=== PATIENT | male | born 1975 | race Hispanic/Latino ===

== ENCOUNTER 2020-10-11 20:11 | Inpatient (IN) | payer BC ==
[2020-10-11] MEDS ORDERED: ACETAMINOPHEN 500 MG TAB ONE (20:47)
[2020-10-11] MEDS ORDERED: CIPROFLOXACIN 400mg IV 400 MG/200 ML BAG IV ONE (22:24)
[2020-10-11] MEDS ORDERED: NA CHLORIDE 0.9% 1,000 ML ONE (22:24)
[2020-10-11] MEDS ORDERED: ONDANSETRON 4 MG/2 ML VIAL ONE (22:24)
[2020-10-11] MEDS ORDERED: MORPHINE 4 MG/ML SYR ONE ×2 (22:24→23:42)
[2020-10-11] MEDS ORDERED: METRONIDAZOLE 500mg IVPB 500 MG/100 ML BAG IV ONE (22:24)
[2020-10-11 22:43] LABS: Basophils % 0.2 % (0-1.3); Hematocrit 42.6 % (39.6-49.0); Lymphocytes % 7.1 % (15.3-44.8); MPV 9.5 fL (7.6-11.3); RBC Red Blood Cell Count 5.06 M/uL (4.33-5.43)
[2020-10-11 22:44] LABS: Protime INR 1.04
[2020-10-11 23:01] LABS: ALT/SGPT 19 U/L (12-78); AST/SGOT 15 U/L (15-37); Albumin 4.1 g/dL (3.4-5.0); Alkaline Phosphatase 79 U/L (45-117); BUN Blood Urea Nitrogen 20 mg/dL (7-18); Bicarbonate 23 mmol/L (21-32); Bilirubin Direct 0.2 mg/dL (0-0.2); Bilirubin Total 0.8 mg/dL (0.2-1.0); Glucose Level 101 mg/dL (74-106); Lipase 100 U/L (73-393); Magnesium 2.1 mg/dL (1.8-2.4); NT PRO-BNP 44 pg/mL (<125); Potassium 3.7 mmol/L (3.5-5.1); Protein, Total 7.4 g/dL (6.4-8.2); Sodium Level 137 mmol/L (136-145); Troponin (Emerg Dept Use Only) < 0.02 ng/mL (0.0-0.045)
[2020-10-11] MEDS ORDERED: CEFTRIAXONE/SWI 1gm 2 GM/20 ML SYR ONE (23:42)
[2020-10-12 00:06] LABS: Blood Morphology Comment NOT SEEN (NOT SEEN); Platelet Estimate ADEQ
[2020-10-12 00:08] LABS: Urine Blood TRACE (NEG); Urine Glucose NEGATIVE (NEG); Urine Protein NEGATIVE (NEG); Urine Specific Gravity >1.030 (1.005-1.030)
--- NOTE | 2020-10-12 00:37 | EDPHYS ---
Physician Documentation [facility] – [place], [place] Name: Jordan Swanson Age: 45 yrs Sex: Male : 1975 Arrival Date: 10/11/2020 Time: 20:16 Bed 13 Private MD: ED Physician Angel Mares HPI: 10/11 22:54 This 45 yrs old Male presents to ER via Wheelchair with complaints of LOWER alethea ABDOMINAL PAIN. 22:54 The patient presents with abdominal pain in the lower abdomen. Onset: The alethea symptoms/episode began/occurred 1 day(s) ago. The symptoms do not radiate. Associated signs and symptoms: Pertinent positives: fever. The symptoms are described as crampy. Modifying factors: The symptoms are alleviated by nothing, the symptoms are aggravated by nothing. Severity of pain: At its worst the pain was mild moderate in the emergency department the pain is unchanged. The patient has not experienced similar symptoms in the past. Historical: - Allergies: 20:25 No Known Allergies; ll1 - PMHx: 20:25 None; ll1 - PSHx: 20:25 None; ll1 - Immunization history:: Flu vaccine is not up to date. - Social history:: Smoking status: Patient denies any tobacco usage or history of. - Family history:: not pertinent, pertinent for. ROS: 22:54 Constitutional: Negative for fever, chills, and weight loss, Eyes: Negative for injury, alethea pain, redness, and discharge, ENT: Negative for injury, pain, and discharge, Neck: Negative for injury, pain, and swelling, Cardiovascular: Negative for chest pain, palpitations, and edema, Respiratory: Negative for shortness of breath, cough, wheezing, and pleuritic chest pain, Back: Negative for injury and pain, : Negative for injury, bleeding, discharge, and swelling, MS/Extremity: Negative for injury and deformity, Skin: Negative for injury, rash, and discoloration, Neuro: Negative for headache, weakness, numbness, tingling, and seizure, Psych: Negative for depression, anxiety, suicide ideation, homicidal ideation, and hallucinations, Allergy/Immunology: Negative for hives, rash, and allergies, Endocrine: Negative for neck swelling, polydipsia, polyuria, polyphagia, and marked weight changes, Hematologic/Lymphatic: Negative for swollen nodes, abnormal bleeding, and unusual bruising. 22:54 Abdomen/GI: Positive for abdominal pain, abdominal cramps, abdominal distension, of the right lower quadrant and left lower quadrant. Exam: 22:54 Constitutional: This is a well developed, well nourished patient who is awake, alert, alethea and in no acute distress. Head/Face: Normocephalic, atraumatic. Eyes: Pupils equal round and reactive to light, extra-ocular motions intact. Lids and lashes normal. Conjunctiva and sclera are non-icteric and not injected. Cornea within normal limits. Periorbital areas with no swelling, redness, or edema. ENT: Nares patent. No nasal discharge, no septal abnormalities noted. Tympanic membranes are normal and external auditory canals are clear. Oropharynx with no redness, swelling, or masses, exudates, or evidence of obstruction, uvula midline. Mucous membranes moist. Neck: Trachea midline, no thyromegaly or masses palpated, and no cervical lymphadenopathy. Supple, full range of motion without nuchal rigidity, or vertebral point tenderness. No Meningismus. Chest/axilla: Normal chest wall appearance and motion. Nontender with no deformity. No lesions are appreciated. Cardiovascular: Regular rate and rhythm with a normal S1 and S2. No gallops, murmurs, or rubs. Normal PMI, no JVD. No pulse deficits. Respiratory: Lungs have equal breath sounds bilaterally, clear to auscultation and percussion. No rales, rhonchi or wheezes noted. No increased work of breathing, no retractions or nasal flaring. Back: No spinal tenderness. No costovertebral tenderness. Full range of motion. Male : Normal genitalia with no discharge or lesions. Skin: Warm, dry with normal turgor. Normal color with no rashes, no lesions, and no evidence of cellulitis. MS/ Extremity: Pulses equal, no cyanosis. Neurovascular intact. Full, normal range of motion. Neuro: Awake and alert, GCS 15, oriented to person, place, time, and situation. Cranial nerves II-XII grossly intact. Motor strength 5/5 in all extremities. Sensory grossly intact. Cerebellar exam normal. Normal gait. Psych: Awake, alert, with orientation to person, place and time. Behavior, mood, and affect are within normal limits. 22:54 Abdomen/GI: Inspection: distension, Bowel sounds: normal, Palpation: mild abdominal tenderness, moderate abdominal tenderness, in the suprapubic area and left lower quadrant, Liver: no appreciated palpable abnormalities, Hernia: not appreciated. 23:12 ECG was reviewed by the Attending Physician. [facility] Vital Signs: 20:25 BP 110 / 72; Pulse 81; Resp 16; Temp 99.7; Pulse Ox 94% ; Weight 79.83 kg; Height 5 ft. ll1 11 in. (180.34 cm); Pain 10/10; 22:00 BP 119 / 89; Pulse 80; Resp 17; Pulse Ox 98% ; Pain 6/10; rr5 23:00 BP 121 / 74; Pulse 79; Resp 16; Pulse Ox 100% ; rr5 23:51 BP 115 / 72; Pulse 75; Resp 19; Pulse Ox 99% ; Pain 6/10; rr5 10/12 01:00 BP 113 / 62; Pulse 79; Resp 16; Pulse Ox 98% ; Pain 5/10; rr5 02:00 BP 125 / 70; Pulse 70; Resp 16; Pulse Ox 98% ; Pain 8/10; rr5 10/11 20:25 Body Mass Index 24.55 (79.83 kg, 180.34 cm) ll1 MDM: 10/11 22:04 Patient medically screened. alethea 22:57 Differential diagnosis: bowel obstruction, diverticulitis, gastritis, non-specific abd alethea pain, pancreatitis, Pyelonephritis, Ureterolithiasis, urinary tract infection. Data reviewed: vital signs, nurses notes, lab test result(s), EKG, radiologic studies, CT scan, plain films. Data interpreted: bus monitor: rate is 81 beats/min, rhythm is regular, Pulse oximetry: on room air is 94 %. Test interpretation: by ED physician or midlevel provider: ECG, plain radiologic studies. Counseling: I had a detailed discussion with the patient and/or guardian regarding: the historical points, exam findings, and any diagnostic results supporting the discharge/admit diagnosis, lab results, radiology results. 10/12 00:45 Physician consultation: Jn Mccain MD and will see patient in inpatient room, npo, alethea hilton / steph malik , will see perforated diverticulitis in the am. 10/11 22:03 Order name: Basic Metabolic Panel; Complete Time: 23:05 [facility] 10/11 22:03 Order name: CBC with Diff; Complete Time: 01:39 [facility] 10/11 22:03 Order name: LFT's; Complete Time: 23:05 [facility] 10/11 22:03 Order name: Magnesium; Complete Time: 23:05 [facility] 10/11 22:03 Order name: NT PRO-BNP; Complete Time: 23:05 [facility] 10/11 22:03 Order name: PT-INR; Complete Time: 23:05 [facility] 10/11 22:03 Order name: Troponin (emerg Dept Use Only); Complete Time: 23:05 [facility] 10/11 22:03 Order name: XRAY Chest (1 view) [facility] 10/11 22:03 Order name: Lipase; Complete Time: 23:05 [facility] 10/11 22:03 Order name: CT Abd/Pelvis - IV Contrast Only [facility] 10/11 22:50 Order name: Manual Differential; Complete Time: 01:39 EDMS 10/11 23:12 Order name: Urine Dipstick--Ancillary (enter results); Complete Time: 01:39 2 10/12 00:38 Order name: COVID-19 2 10/12 03:04 Order name: SARS-COV-2 RT PCR EDMS 10/11 22:03 Order name: EKG; Complete Time: 22:05 [facility] 10/11 22:03 Order name: Cardiac monitoring; Complete Time: 22:42 [facility] 10/11 22:03 Order name: EKG - Nurse/Tech; Complete Time: 23:11 [facility] 10/11 22:03 Order name: IV Saline Lock; Complete Time: 22:47 [facility] 10/11 22:03 Order name: Labs collected and sent; Complete Time: 22:47 [facility] 10/11 22:03 Order name: O2 Per Protocol; Complete Time: 22:48 [facility] 10/11 22:03 Order name: O2 Sat Monitoring; Complete Time: 22:48 alethea EC/06 23:12 Rate is 74 beats/min. Rhythm is regular. QRS [place] is Normal. NM interval is normal. QRS alethea interval is normal. QT interval is normal. No Q waves. T waves are Normal. No ST changes noted. Clinical impression: NSR w/ Non-specific ST/T Changes and No evidence of ischemia. Interpreted by me. Reviewed by me. Administered Medications: 20:30 Drug: Tylenol 1000 mg Route: PO; ll1 21:30 Follow up: Response: No adverse reaction rr5 22:15 Drug: NS 0.9% 1000 ml Route: IV; Rate: 1 bolus; Site: right forearm; rr5 23:10 Follow up: Response: No adverse reaction; IV Status: Completed infusion; IV Intake: rr5 1000ml 23:38 Follow up: Response: No adverse reaction; IV Status: Completed infusion; IV Intake: rr5 1000ml 22:15 Drug: Flagyl 500 mg Volume: 100 ml; Route: IVPB; Rate: 200 ml/hr; Infused Over: 30 rr5 mins; Site: right forearm; 22:55 Follow up: Response: No adverse reaction; IV Status: Completed infusion; IV Intake: rr5 100ml 22:40 Drug: Zofran (Ondansetron) 4 mg Route: IVP; Site: right forearm; rr5 23:15 Follow up: Response: No adverse reaction rr5 22:42 Drug: morphine 4 mg {Note: rass 0.} Route: IVP; Site: right forearm; rr5 23:30 Follow up: Response: No adverse reaction; Pain is decreased; RASS: Alert and Calm (0) rr5 23:00 Drug: Cipro 400 mg Volume: 200 ml; Route: IVPB; Infused Over: 60 mins; Site: right rr5 forearm; 10/12 00:00 Follow up: Response: No adverse reaction; IV Status: Completed infusion; IV Intake: rr5 200ml 10/11 23:30 Drug: morphine 4 mg {Note: rass 0.} Route: IVP; Site: right forearm; rr5 10/12 00:30 Follow up: Response: No adverse reaction; Pain is decreased; RASS: Alert and Calm (0) rr5 10/11 23:34 Drug: Rocephin 2 grams Route: IV; Rate: per protocol; Site: right forearm; rr5 10/12 00:30 Follow up: Response: No adverse reaction; IV Status: Completed infusion; IV Intake: [id number] Disposition: 10/12/20 00:36 Hospitalization ordered by Jn Mccain for Inpatient Admission. Preliminary diagnosis are Abdominal tenderness, Diverticulitis of intestine, part unspecified, with perforation and abscess without bleeding, Elevated white blood cell count. - Bed requested for Telemetry/MedSurg (Inpatient). - Status is Inpatient Admission. aa5 - Condition is Fair. - Problem is new. - Symptoms have improved. Signatures: Dispatcher [employer] EDAngel Solares MD MD cha Calderon, Audri, RN RN aa5 Eric Hidalgo, RABBIT FANCIER-C RABBIT FANCIER-Cla1 Carlee Stevens, RN RN Walter Crews, RN RN ja1 Pierre Waller, RN RN rr5 Loyda Norman, RN RN ll1 Corrections: (The following items were deleted from the chart) 01:27 00:36 Hospitalization Ordered by Jn Mccain MD for Inpatient Admission. Preliminary cg diagnosis is Abdominal tenderness; Diverticulitis of intestine, part unspecified, with perforation and abscess without bleeding; Elevated white blood cell count. Bed requested for Telemetry/MedSurg (Inpatient). Status is Inpatient Admission. Condition is Fair. Problem is new. Symptoms have improved. [facility] 14:00 01:27 10/12/2020 00:36 Hospitalization Ordered by Jn Mccain MD for Inpatient [facility] Admission. Preliminary diagnosis is Abdominal tenderness; Diverticulitis of intestine, part unspecified, with perforation and abscess without bleeding; Elevated white blood cell count. Bed requested for [facility] ER HOLD. Status is Inpatient Admission. Condition is Fair. Problem is new. Symptoms have improved. 15:59 14:00 10/12/2020 00:36 Hospitalization Ordered by Jn Mccain MD for Inpatient [facility] Admission. Preliminary diagnosis is Abdominal tenderness; Diverticulitis of intestine, part unspecified, with perforation and abscess without bleeding; Elevated white blood cell count. Bed requested for Telemetry/MedSurg (Inpatient). Status is Inpatient Admission. Condition is Fair. Problem is new. Symptoms have improved. ja
--- NOTE | 2020-10-12 00:37 | ER ---
Nurse's Notes [facility] Name: Jordan Swanson Age: 45 yrs Sex: Male : 1975 Arrival Date: 10/11/2020 Time: 20:16 Bed 13 Private MD: Diagnosis: Abdominal tenderness;Diverticulitis of intestine, part unspecified, with perforation and abscess without bleeding;Elevated white blood cell count Presentation: 10/11 20:25 Chief complaint: Patient states: Pelvic pains for 1 day. Reports pulsating pain, worse ll1 with walking. Denies dysuria. No fever earlier today. Eating/drinking normal. Coronavirus screen: Client denies travel out of the [place] in the last 14 days. At this time, the client does not indicate any symptoms associated with coronavirus-19. Ebola Screen: Patient denies travel to an Ebola-affected area in the 21 days before illness onset. Initial Sepsis Screen: Does the patient meet any 2 criteria? No. Patient's initial sepsis screen is negative. Does the patient have a suspected source of infection? Yes: Acute abdominal pain. Risk Assessment: Do you want to hurt yourself or someone else? Patient reports no desire to harm self or others. Onset of symptoms was October 11, 2020. 20:25 Method Of Arrival: Wheelchair ll1 20:25 Acuity: JARROD 3 ll1 Historical: - Allergies: 20:25 No Known Allergies; ll1 - PMHx: 20:25 None; ll1 - PSHx: 20:25 None; ll1 - Immunization history:: Flu vaccine is not up to date. - Social history:: Smoking status: Patient denies any tobacco usage or history of. - Family history:: not pertinent, pertinent for. Screenin:27 Abuse screen: Denies threats or abuse. Nutritional screening: No deficits noted. ll1 Tuberculosis screening: No symptoms or risk factors identified. 20:30 Fall Risk IV access (20 points). Total Khoury Fall Scale indicates No Risk (0-24 pts). rr5 Assessment: 20:30 General: Appears in no apparent distress. uncomfortable, ill, Behavior is calm, rr5 cooperative, appropriate for age. 20:30 Pain: Complains of pain in suprapubic area and left lower quadrant and right lower rr5 quadrant Pain currently is 9 out of 10 on a pain scale. Quality of pain is described as aching, Pain began gradually, Is intermittent. Neuro: Level of Consciousness is awake, alert, obeys commands, Oriented to person, place, time, situation. Cardiovascular: Capillary refill < 3 seconds Patient's skin is warm and dry. Respiratory: Airway is patent Respiratory effort is even, unlabored, Respiratory pattern is regular, symmetrical. GI: Abdomen is round non-distended, Reports lower abdominal pain, cramping, nausea. : No signs and/or symptoms were reported regarding the genitourinary system. EENT: No signs and/or symptoms were reported regarding the EENT system. Derm: Skin is intact, is healthy with good turgor, Skin temperature is warm. Musculoskeletal: Circulation, motion, and sensation intact. Capillary refill < 3 seconds. 21:40 Reassessment: Patient appears in no apparent distress at this time. Patient is alert, rr5 oriented x 3, equal unlabored respirations, skin warm/dry/pink. awaiting for results. 22:20 Reassessment: Patient appears in no apparent distress at this time. Patient is alert, rr5 oriented x 3, equal unlabored respirations, skin warm/dry/pink. 23:30 Reassessment: Patient appears in no apparent distress at this time. Patient is alert, rr5 oriented x 3, equal unlabored respirations, skin warm/dry/pink. complaints of abdominal pain ED provider aware with order made and carriedout. 10/12 00:30 Reassessment: Patient appears in no apparent distress at this time. Patient is alert, rr5 oriented x 3, equal unlabored respirations, skin warm/dry/pink. Patient states symptoms have improved. 01:15 Reassessment: Patient appears in no apparent distress at this time. Patient and/or rr5 family updated on plan of care and expected duration. Pain level reassessed. Patient is alert, oriented x 3, equal unlabored respirations, skin warm/dry/pink. 02:00 Reassessment: Patient appears in no apparent distress at this time. Patient is alert, rr5 oriented x 3, equal unlabored respirations, skin warm/dry/pink. for admission explained to patient the plan of care, patient agreed for the dmission. Vital Signs: 10/11 20:25 BP 110 / 72; Pulse 81; Resp 16; Temp 99.7; Pulse Ox 94% ; Weight 79.83 kg; Height 5 ft. ll1 11 in. (180.34 cm); Pain 10/10; 22:00 BP 119 / 89; Pulse 80; Resp 17; Pulse Ox 98% ; Pain 6/10; rr5 23:00 BP 121 / 74; Pulse 79; Resp 16; Pulse Ox 100% ; rr5 23:51 BP 115 / 72; Pulse 75; Resp 19; Pulse Ox 99% ; Pain 6/10; rr5 10/12 01:00 BP 113 / 62; Pulse 79; Resp 16; Pulse Ox 98% ; Pain 5/10; rr5 02:00 BP 125 / 70; Pulse 70; Resp 16; Pulse Ox 98% ; Pain 8/10; rr5 10/11 20:25 Body Mass Index 24.55 (79.83 kg, 180.34 cm) ll1 ED Course: 10/11 20:16 Patient arrived in ED. cf2 20:25 Arm band placed on. ll1 20:27 Triage completed. ll1 20:30 Patient has correct armband on for positive identification. Placed in gown. Bed in low rr5 position. Call light in reach. Side rails up X2. monitor car operator on. Pulse ox on. NIBP on. 22:01 Angel Mares MD is Attending Physician. [facility] 22:02 Pierre Waller RN is Primary Nurse. rr5 22:15 Inserted saline lock: 20 gauge in right forearm, using aseptic technique. Blood rr5 collected. 22:37 XRAY Chest (1 view) In Process Unspecified. EDMS 23:30 Urine collected: clean catch specimen, clear. rr5 23:56 CT Abd/Pelvis - IV Contrast Only In Process Unspecified. EDMS 10/12 00:34 Jn Mccain MD is Hospitalizing Provider. [facility] 01:27 COVID swab sent to lab. rr5 02:00 No provider procedures requiring assistance completed. Patient admitted, IV remains in rr5 place. intact, No redness/swelling at site. Administered Medications: 10/11 20:30 Drug: Tylenol 1000 mg Route: PO; ll1 21:30 Follow up: Response: No adverse reaction rr5 22:15 Drug: NS 0.9% 1000 ml Route: IV; Rate: 1 bolus; Site: right forearm; rr5 23:10 Follow up: Response: No adverse reaction; IV Status: Completed infusion; IV Intake: rr5 1000ml 23:38 Follow up: Response: No adverse reaction; IV Status: Completed infusion; IV Intake: rr5 1000ml 22:15 Drug: Flagyl 500 mg Volume: 100 ml; Route: IVPB; Rate: 200 ml/hr; Infused Over: 30 rr5 mins; Site: right forearm; 22:55 Follow up: Response: No adverse reaction; IV Status: Completed infusion; IV Intake: rr5 100ml 22:40 Drug: Zofran (Ondansetron) 4 mg Route: IVP; Site: right forearm; rr5 23:15 Follow up: Response: No adverse reaction rr5 22:42 Drug: morphine 4 mg {Note: rass 0.} Route: IVP; Site: right forearm; rr5 23:30 Follow up: Response: No adverse reaction; Pain is decreased; RASS: Alert and Calm (0) rr5 23:00 Drug: Cipro 400 mg Volume: 200 ml; Route: IVPB; Infused Over: 60 mins; Site: right rr5 forearm; 10/12 00:00 Follow up: Response: No adverse reaction; IV Status: Completed infusion; IV Intake: rr5 200ml 10/11 23:30 Drug: morphine 4 mg {Note: rass 0.} Route: IVP; Site: right forearm; rr5 10/12 00:30 Follow up: Response: No adverse reaction; Pain is decreased; RASS: Alert and Calm (0) rr5 10/11 23:34 Drug: Rocephin 2 grams Route: IV; Rate: per protocol; Site: right forearm; rr5 10/12 00:30 Follow up: Response: No adverse reaction; IV Status: Completed infusion; IV Intake: [id number] Intake: 10/11 22:55 IV: 100ml; Total: 100ml. rr5 23:10 IV: 1000ml; Total: 1100ml. rr5 23:38 IV: 1000ml; Total: 2100ml. rr5 10/12 00:00 IV: 200ml; Total: 2300ml. rr5 00:30 IV: 20ml; Total: 2320ml. rr5 Outcome: 00:36 Decision to Hospitalize by Provider. alethea 02:00 Admitted to ER Hold. Please see [facility] for further documentation. rr5 02:00 Condition: stable 02:00 Instructed on the need for admit. 15:55 Patient left the ED. aa5 Signatures: Dispatcher [employer] EDAngel Solares MD MD cha Calderon, Audri RN RN aa5 Pierre Waller RN RN rr5 Dilma Beal cf2 Loyda Norman RN RN ll1 Corrections: (The following items were deleted from the chart) 10/11 23:36 23:15 Flagyl 500 mg 100 ml IVPB at 200 ml/hr in right forearm over 30 mins 100 ml rr5 rr5 10/12 16:00 15:59 Patient left the ED. aa5 aa5
[2020-10-12] MEDS: D5 0.45 NS 1,000 ML IV SCH ×3 (02:13→17:43)
[2020-10-12] MEDS ORDERED: ONDANSETRON 4 MG/2 ML VIAL IV PRN (02:13)
[2020-10-12] MEDS: MORPHINE 4 MG/ML SYR IV PRN ×5 (03:32→20:55)
[2020-10-12] MEDS: ACETAMINOPHEN 325 MG TABLET PO PRN ×2 (03:32→15:30)
[2020-10-12] MEDS ORDERED: MORPHINE 4 MG/ML SYR ONE ×3 (03:38→15:07)
[2020-10-12] MEDS ORDERED: ACETAMINOPHEN 325 MG TABLET ONE ×3 (03:38→15:41)
[2020-10-12] MEDS ORDERED: D5 0.45 NS 1,000 ML IV ONE ×2 (03:38→11:42)
[2020-10-12 04:53] VITALS: BMI 24.3
[2020-10-12] MEDS: METRONIDAZOLE 500mg IVPB 500 MG/100 ML BAG IV SCH ×3 (06:33→17:43)
[2020-10-12] MEDS ORDERED: METRONIDAZOLE 500mg IVPB 500 MG/100 ML BAG IV ONE ×2 (06:50→15:15)
[2020-10-12] MEDS ORDERED: FAMOTIDINE 20 MG/2 ML VIAL IV ONE (07:52)
[2020-10-12] MEDS ORDERED: CIPROFLOXACIN 400mg IV 400 MG/200 ML BAG IV ONE (07:52)
[2020-10-12] MEDS: FAMOTIDINE 20 MG/2 ML VIAL IV SCH ×2 (08:29→20:56)
--- NOTE | 2020-10-12 08:45 | RAD REPORT ---
EXAM DESCRIPTION: RAD - Chest Single View - 10/11/2020 10:37 pm CLINICAL HISTORY: ABDOMINAL DISTENTION Chest pain. COMPARISON: No comparisons FINDINGS: Portable technique limits examination quality. The lungs are grossly clear. The heart is normal in size. No displaced fractures. IMPRESSION: No acute intrathoracic process suspected.
[2020-10-12] MEDS: CIPROFLOXACIN 400mg IV 400 MG/200 ML BAG IV SCH ×2 (09:00→20:54)
[2020-10-12] MEDS ORDERED: DIAZEPAM 5 MG TABLET PO ONE (11:37)
[2020-10-12] MEDS ORDERED: NA CHLORIDE 0.9% 500 ML IV ONE ×2 (11:40→13:56)
[2020-10-12] MEDS ORDERED: NA CHLORIDE 0.9% 500 ML ONE ×2 (11:41→13:21)
[2020-10-12] MEDS ORDERED: DIAZEPAM 5 MG TABLET ONE (11:41)
--- NOTE | 2020-10-12 12:31 | P.HP ---
Date of Service: 10/12/20 PC: HPC: This 45-year-old male presents emergency room with severe left lower quadrant abdominal pain for diagnosis and treatment. PMH: Patient been feeling well yesterday came home from work. Noticed that he had sudden onset of left lower quadrant abdominal pain. Tried use the restroom with no success. May down with pain only intensified. Came to the emergency room at that time. PSHx: Negative SOC: Allergies SYS REVIEW: No cough, wheeze, shortness of breath. No chest pain or palpitations. Denies any urinary complaints O/E awake alert vital signs are stated HEENT: Not jaundice Chest: Chest movement equal bilaterally ABD: Patient has some pain with guarding and rebound in the left lower quadrant. Rest of abdomen and relatively benign LOCO: Intact DATA: CT scan demonstrates small manner free air in the peritoneal cavity, no fluid or abscess noted inflammation of the sigmoid colon IMPRESSION: Perforated diverticulitis PLAN: The patient currently has localized peritoneal signs despite having free air seen. There is no evidence of any gross abscess or massive ascites. I will continue with the antibiotics, keep the patient distal some clear liquids for comfort. Hopefully this will seal resolve without requiring surgical intervention. I have discussed with him surgical procedures required should he need to go to the operating room. The possibility of bleeding, infection, injury to bowel and surrounding structures including ureters were outlined. The possible need for further surgeries and procedures colostomy is and colonoscopies were explained. He understands and is content with this current [place] treatment.
[2020-10-12] MEDS ORDERED: ONDANSETRON 4 MG/2 ML VIAL ONE (15:07)
[2020-10-12] MEDS ORDERED: INFLUENZA VACCINE (for 3y+) 0.5 ML DOSE IMVAC ONE (19:00)
--- NOTE | 2020-10-12 20:15 | RAD REPORT ---
EXAM DESCRIPTION: ADDENDUM #1 Per Mignon Kim RN, Dr. Kim was aware of findings and did not wish to be connected to [facility] radiologist. Electronically signed by: Juan M Henry MD 10/12/2020 6:41 AM HOOK LOADER End of Addendum CLINICAL HISTORY: ABD PAIN COMPARISON: None. TECHNIQUE: CT ABDOMEN PELVIS WITH IV CONTRAST on 10/11/2020 10:03 PM HOOK LOADER This exam was performed according to our departmental dose-optimization program, which includes autom ated exposure control, adjustment of the mA and/or kV according to patient size and/or use of iterati ve reconstruction technique. FINDINGS: Lower lungs are clear. Abdomen: The liver is normal in appearance. There is no biliary dilatation. There is a small hiatal h ernia. Gallbladder is decompressed containing several calcified gallstones. Stomach is mildly distend ed with air and fluid. The pancreas and spleen are normal in appearance. The adrenal glands and kidne ys are unremarkable. Abdominal aorta is normal in course and caliber without aneurysm. There is no free air. There is no r etroperitoneal adenopathy. There is extraluminal free air which extends into the anterior and upper a bdomen. Pelvis: There is moderate inflammation surrounding the proximal colon. Urinary bladder is unremarkabl e. There is no free fluid. Appendix is normal. Skeleton: There are no acute osseous findings. No suspicious bony lesions. IMPRESSION: Segmental inflammatory changes in the proximal sigmoid colon with pneumoperitoneum. Find ings likely related to perforated diverticulitis. Electronically signed by: Juan M Henry MD 10/12/2020 12:20 AM HOOK LO[employer]ER ADDENDUM #1 Per Mignon Kim RN, Dr. Kim was aware of findings and did not wish to be connected to [facility] radiologist. Electronically signed by: Juan M Henry MD 10/12/2020 6:41 AM HOOK LOADER End of Addendum ADDENDUM #1 Per Mignon Kim RN, Dr. Kim was aware of findings and did not wish to be connected to [facility] radiologist. Electronically signed by: Juan M Henry MD 10/12/2020 6:41 AM HOOK LOADER End of Addendum CLINICAL HISTORY: ABD PAIN COMPARISON: None. TECHNIQUE: CT ABDOMEN PELVIS WITH IV CONTRAST on 10/11/2020 10:03 PM HOOK LOADER This exam was performed according to our departmental dose-optimization program, which includes autom ated exposure control, adjustment of the mA and/or kV according to patient size and/or use of iterati ve reconstruction technique. FINDINGS: Lower lungs are clear. Abdomen: The liver is normal in appearance. There is no biliary dilatation. There is a small hiatal h ernia. Gallbladder is decompressed containing several calcified gallstones. Stomach is mildly distend ed with air and fluid. The pancreas and spleen are normal in appearance. The adrenal glands and kidne ys are unremarkable. Abdominal aorta is normal in course and caliber without aneurysm. There is no free air. There is no r etroperitoneal adenopathy. There is extraluminal free air which extends into the anterior and upper a bdomen. Pelvis: There is moderate inflammation surrounding the proximal colon. Urinary bladder is unremarkabl e. There is no free fluid. Appendix is normal. Skeleton: There are no acute osseous findings. No suspicious bony lesions. IMPRESSION: Segmental inflammatory changes in the proximal sigmoid colon with pneumoperitoneum. Find ings likely related to perforated diverticulitis. Electronically signed by: Juan M Henry MD 10/12/2020 12:20 AM HOOK LOADER Due to temporary technical issues with the PACS/Fluency reporting system, reports are being signed by the in house radiologists without review as a courtesy to insure prompt reporting. The interpreting radiologist is fully responsible for the content of the report.
[2020-10-13] MEDS: METRONIDAZOLE 500mg IVPB 500 MG/100 ML BAG IV SCH ×4 (00:53→18:05)
[2020-10-13] MEDS: MORPHINE 4 MG/ML SYR IV PRN ×2 (01:00→04:44)
[2020-10-13 06:04] LABS: Absolute Lymphocytes (CBC) 1.4 K/uL (0.7-4.9); Basophils % 0.3 % (0-1.3); Hematocrit 39.6 % (39.6-49.0); MPV 9.6 fL (7.6-11.3); RBC Red Blood Cell Count 4.67 M/uL (4.33-5.43)
[2020-10-13] MEDS: D5 0.45 NS 1,000 ML IV SCH ×3 (06:15→18:05)
[2020-10-13 07:29] LABS: ALT/SGPT 15 U/L (12-78); AST/SGOT 15 U/L (15-37); Albumin 3.2 g/dL (3.4-5.0); Alkaline Phosphatase 56 U/L (45-117); BUN Blood Urea Nitrogen 9 mg/dL (7-18); Bicarbonate 26 mmol/L (21-32); Bilirubin Direct 0.4 mg/dL (0-0.2); Bilirubin Total 1.4 mg/dL (0.2-1.0); Glucose Level 105 mg/dL (74-106); Lipase 50 U/L (73-393); Potassium 3.5 mmol/L (3.5-5.1); Protein, Total 6.7 g/dL (6.4-8.2); Sodium Level 135 mmol/L (136-145)
[2020-10-13] MEDS: CIPROFLOXACIN 400mg IV 400 MG/200 ML BAG IV SCH ×2 (08:03→22:00)
[2020-10-13] MEDS: FAMOTIDINE 20 MG/2 ML VIAL IV SCH ×2 (08:03→22:01)
[2020-10-13] MEDS ORDERED: NA CHLORIDE 0.9% 500 ML IV ONE (11:57)
--- NOTE | 2020-10-13 12:05 | P.PN ---
Date of Service: 10/13/20 S: Patient is somewhat better today. Still having some localized tenderness when he walks. Can put a finger on the area warrant sore. Tolerating clear liquids. Pain medicine is adequate in controlling his discomfort. O: Still has some localized tenderness in the left lower quadrant. Rest of the abdomen is soft nontender. A: Patient is still responding to conservative managed with IV antibiotics. P: Continue current therapy. Will repeat his labs in the a.m., and change in 2 some oral pain medication. I will be out of town for the next [address] Betancourt has kindly agreed to follow this patient for me. Should there be any questions or problems, I can be contacted and back if the need be. I explained this to the patient and his family. They are comfortable with this arrangement.
[2020-10-13] MEDS: HYDROCODONE/APAP 10/325 TAB PO PRN ×2 (13:56→22:01)
[2020-10-14] MEDS: METRONIDAZOLE 500mg IVPB 500 MG/100 ML BAG IV SCH ×4 (00:11→17:10)
[2020-10-14] MEDS: D5 0.45 NS 1,000 ML IV SCH ×3 (02:13→12:29)
[2020-10-14 06:47] LABS: Absolute Lymphocytes (CBC) 1.3 K/uL (0.7-4.9); Basophils % 0.4 % (0-1.3); Hematocrit 38.9 % (39.6-49.0); Lymphocytes % 15.7 % (15.3-44.8); MPV 9.5 fL (7.6-11.3); RBC Red Blood Cell Count 4.62 M/uL (4.33-5.43)
[2020-10-14 07:20] LABS: BUN Blood Urea Nitrogen 7 mg/dL (7-18); Bicarbonate 27 mmol/L (21-32); Glucose Level 105 mg/dL (74-106); Potassium 3.8 mmol/L (3.5-5.1); Sodium Level 138 mmol/L (136-145)
[2020-10-14] MEDS: FAMOTIDINE 20 MG/2 ML VIAL IV SCH ×2 (09:22→22:01)
[2020-10-14] MEDS: CIPROFLOXACIN 400mg IV 400 MG/200 ML BAG IV SCH ×2 (09:23→22:01)
[2020-10-14] MEDS: HYDROCODONE/APAP 10/325 TAB PO PRN (09:33)
[2020-10-14] MEDS: ACETAMINOPHEN 325 MG TABLET PO PRN (21:55)
[2020-10-15] MEDS: D5 0.45 NS 1,000 ML IV SCH ×3 (02:13→11:43)
[2020-10-15] MEDS: METRONIDAZOLE 500mg IVPB 500 MG/100 ML BAG IV SCH ×4 (05:25→17:26)
[2020-10-15] MEDS: CIPROFLOXACIN 400mg IV 400 MG/200 ML BAG IV SCH ×2 (08:52→20:53)
[2020-10-15] MEDS: FAMOTIDINE 20 MG/2 ML VIAL IV SCH ×2 (08:52→20:55)
[2020-10-15] MEDS: HYDROCODONE/APAP 10/325 TAB PO PRN ×2 (12:50→21:00)
--- NOTE | 2020-10-15 19:31 | PN ---
This is a cover note for a patient of Dr. Mccain since he is out of town today. History Of Present Illness: Mr. Swanson is a 45-year-old patient, who comes to us with what appeare d to be a colitis from diverticulitis and also pneumoperitoneum. The patient was initially seen by Glendy Mccain, who after discussing with him the pros and cons of his treatment, they decided to do cons ervative treatment and not take him to surgery emergently. The patient has been on clear liquid diet for these days. He denies any dysuria, hematuria, hematochezia, or melena. Denies any shortness of breath, any chest pain, any fever. Physical Examination: Chest: Clear. Abdomen: Soft and depressible. Only the left lower quadrant has some tenderness. The rest of the a bdomen is benign with no rebound. Extremities: Good capillary refill. Laboratory Data: Blood work is 8.4. Assessment: This 45-year-old patient was initially seen by Dr. Mccain, found to have diverticulitis with perforation and free air, but after discussion with the patient, they decided to continue conse rvative treatment. For the last 4 days, the patient has been treated with IV antibiotics and he has improved. 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 He understands, at this moment I discussed with him what this means. I discussed with him in Panamanian and Irish. He understand hi s emergency, understand his risk, understand also risks of colon surgery, may be an abscess, may be w orse than that, may be sepsis. He feels better, so he wants to continue conservative treatment. He understands that inflammation in that area, the etiology is still unknown, although may be diverticul itis, may be something else, so he will need a colonoscopy and workup after this resolves. At any mo ment if clinical symptoms deteriorate, he understands the risks of holding laparotomy, possible resec tion, possible ostomy as was explained to him with benefits, alternatives, and risks including, but n ot limited to infection, bleeding, damage to adjacent structures, anesthesia complication, UT, and ev en . He asked for more diet. I do not believe he is ready for it yet. If the left lower quadr ant is c d still operator, we are going to keep him on clear liquid diet and see tomorrow morning how he re sponded. If we see clinically he improved, then we will proceed accordingly. He did agree with the plan. SHERLEY Voice ID: [id number] Report ID: [id number]
[2020-10-16] MEDS: METRONIDAZOLE 500mg IVPB 500 MG/100 ML BAG IV SCH ×4 (00:05→17:38)
[2020-10-16] MEDS: D5 0.45 NS 1,000 ML IV SCH ×4 (00:05→23:58)
[2020-10-16 05:51] LABS: Absolute Lymphocytes (CBC) 1.6 K/uL (0.7-4.9); Basophils % 0.8 % (0-1.3); Hematocrit 39.3 % (39.6-49.0); Lymphocytes % 29.4 % (15.3-44.8); MPV 9.1 fL (7.6-11.3); RBC Red Blood Cell Count 4.63 M/uL (4.33-5.43)
[2020-10-16] MEDS: CIPROFLOXACIN 400mg IV 400 MG/200 ML BAG IV SCH ×2 (08:12→20:16)
[2020-10-16] MEDS: FAMOTIDINE 20 MG/2 ML VIAL IV SCH ×2 (08:13→20:16)
[2020-10-16] MEDS: HYDROCODONE/APAP 10/325 TAB PO PRN (20:19)
--- NOTE | 2020-10-16 20:52 | P.PN ---
Date of Service: 10/16/20 S : Patient feels much better today. Says pain is almost completely resolved. Had 1 episode early this evening. Described it as a cramping sensation in the left lower quadrant. No temperature or fever. O: In very good spirits, vital signs remain stable, voiding well on his own, having bowel movements. He is still low residue diet and is fine with that. Anxious to go home. A: Patient continues to improve. Dr. Betancourt is help over the weekend it was much appreciated. P: I anticipate on discharging the patient in the morning. I have explained this to him. We have gone over diet, maintaining fluid intake, continuing antibiotics, and follow-up appointments. He is very content with this plan. I will reassess in the a.m. and most likely discharge him at that time.
[2020-10-17] MEDS: METRONIDAZOLE 500mg IVPB 500 MG/100 ML BAG IV SCH ×3 (00:04→12:07)
[2020-10-17 00:16] VITALS: O2SAT 94
[2020-10-17] MEDS: D5 0.45 NS 1,000 ML IV SCH (02:13)
[2020-10-17] MEDS: CIPROFLOXACIN 400mg IV 400 MG/200 ML BAG IV SCH (09:43)
[2020-10-17] MEDS: FAMOTIDINE 20 MG/2 ML VIAL IV SCH (09:43)
[2020-10-17 17:43] VITALS: BP 104/71; TEMP 98.7
--- NOTE | 2020-11-14 13:36 | P.DS ---
Admission Date: 10/12/20 Discharge Date: 11/14/20 Reason for Admission: Acute left lower quadrant abdominal pain - Problems (1) Diverticulitis of large intestine with complication Status: Acute Brief History of Present Illness: This patient came to the emergency room with severe left lower quadrant abdominal pain for diagnosis and treatment. Hospital Course: The patient was evaluated emergency room. It was found he had perforated diverticular disease with a small abscess as well as some free air. The patient was admitted at that time and started on IV antibiotics, IV fluids, and pain medicine. He had been kept NPO. Over the course of the next few days his symptoms gradually resolved. On the day of discharge his abdomen was soft, he is tolerating a diet, had remained afebrile. He will be discharged on p.o. antibiotics and will follow up with me in my office. He knows that he is to be scheduled for a colonoscopy in in approximately 6 weeks time. Vital Signs/Physical Exam: Temp Pulse Resp BP Pulse Ox 98.7 F 60 18 104/71 97 10/17/20 16:00 10/17/20 16:00 10/17/20 16:00 10/17/20 16:00 10/17/20 16:00 Laboratory Data at Discharge: WBC 5.4 K/uL (4.3-10.9) D 10/16/20 05:07 Hgb 13.1 g/dL (13.6-17.9) L 10/16/20 05:07 Hct 39.3 % (39.6-49.0) L 10/16/20 05:07 Plt Count 234 K/uL (152-406) D 10/16/20 05:07 PT 12.3 SECONDS (9.5-12.5) 10/11/20 22:30 INR 1.04 10/11/20 22:30 Sodium 138 mmol/L (136-145) 10/14/20 06:13 Potassium 3.8 mmol/L (3.5-5.1) 10/14/20 06:13 BUN 7 mg/dL (7-18) 10/14/20 06:13 Creatinine 0.77 mg/dL (0.55-1.3) 10/14/20 06:13 Glucose 105 mg/dL (74-106) 10/14/20 06:13 Magnesium 2.1 mg/dL (1.8-2.4) 10/11/20 22:30 Total Bilirubin 1.4 mg/dL (0.2-1.0) H 10/13/20 07:01 AST 15 U/L (15-37) 10/13/20 07:01 ALT 15 U/L (12-78) 10/13/20 07:01 Alkaline Phosphatase 56 U/L (45-117) 10/13/20 07:01 Lipase 50 U/L (73-393) L 10/13/20 07:01 Home Medications: Levofloxacin [Levaquin] 500 mg PO DAILY 7 Days #7 tablet 10/17/20 metroNIDAZOLE [Flagyl] 500 mg PO TID 7 Days #21 tablet 10/17/20 New Medications: metroNIDAZOLE [Flagyl] 500 mg PO TID 7 Days #21 tablet Levofloxacin [Levaquin] 500 mg PO DAILY 7 Days #7 tablet Physician Discharge Instructions: Continue with soft diet. Advance gradually as long as there is no change in pain level. Pain medicine as needed. Take antibiotics as directed. See me next week in my office. Any questions or problems, go to the emergency room, or contact me. Diet: Soft mecha Activity: Ad magdaleno Followup: Jn Mccain MD [ACTIVE - CAN ADMIT] - (follow up next Friday, call to schedule appointment) NONE,NONE [Primary Care Provider] -
== END 2020-10-17 15:55 | disposition home or self-care (01) | DRG 392 ==
LOC: ER 20:11 → ERHOLD 10-12 00:55 → 2ND 10-12 15:49
PROVIDERS: ADMIT Surgery; ATTEND Surgery
DX: K57.20 Diverticulitis of large intestine with perforation and abscess without bleeding (principal); Z20.822 Contact with and (suspected) exposure to COVID-19
CPT/HCPCS: 36415; 71045; 74177; 80048; 80076; 81003; 83690; 83735; 83880; 84484; 85025; 85610; 93005; 94010; 96365; 96367; 96368; 96375; 99285; J0696; J0744; J2405; J7030; J7040; J7799; Q9967; U0003